=== PATIENT | female | born 1980 | race Caucasian/White ===

== ENCOUNTER 2021-07-18 09:02 | Emergency (ER) | payer OTHER ==
[2021-07-18 09:33] VITALS: BP 000/00; PULSE 81; TEMP 98.1; BMI 21.7
[2021-07-18] MEDS ORDERED: ACETAMINOPHEN 500 MG TABLET (FP) PO ONE (10:34)
[2021-07-18] MEDS ORDERED: ACETAMINOPHEN 500 MG TABLET (FP) ONE (10:37)
[2021-07-18 12:17] LABS: THROAT:GRP A STREP NOT DETECTED (NOTDETECTED)
[2021-07-19 06:06] LABS: SARS-CoV-2 NAA Not Detected (Not Detected)
== END 2021-07-18 12:30 | disposition home or self-care (01) ==
LOC: JERFT 09:02
DX: R07.0 Pain in throat (principal)
CPT/HCPCS: 87651; 99283-25; C9803-CS; U0003; U0005

== ENCOUNTER 2021-10-24 14:06 | Emergency (ER) | payer OTHER ==
[2021-10-24 14:20] VITALS: TEMP 98.6; BMI 22.1
[2021-10-24] MEDS ORDERED: ONDANSETRON 4 MG/2 ML VIAL IVPUSH ONE (16:27)
[2021-10-24] MEDS ORDERED: MAG HYDROX/AL HYDROX/SIMETH 30 ML UNIT-DOSE CUP PO ONE (16:27)
[2021-10-24] MEDS ORDERED: FAMOTIDINE 20 MG/50 ML IVPB 20 MG/50 ML MG IVPB ONE (16:27)
[2021-10-24] MEDS ORDERED: ACETAMINOPHEN 1000 MG/100 ML BAG IVPB ONE (16:31)
[2021-10-24] MEDS ORDERED: ACETAMINOPHEN 325 MG TABLET (FP) PO ONE (16:49)
[2021-10-24] MEDS ORDERED: ONDANSETRON *ODT* 4 MG TABLET SL ONE (16:49)
[2021-10-24] MEDS ORDERED: FAMOTIDINE 10 MG TABLET PO ONE (16:49)
[2021-10-24] MEDS ORDERED: ONDANSETRON *ODT* 4 MG TABLET ONE (16:58)
[2021-10-24] MEDS ORDERED: MAG HYDROX/AL HYDROX/SIMETH 30 ML UNIT-DOSE CUP ONE (16:58)
[2021-10-24] MEDS ORDERED: FAMOTIDINE 10 MG TABLET ONE (16:58)
[2021-10-24] MEDS ORDERED: SUCRALFATE 1 GM TABLET (FP) ONE ×2 (16:58→16:59)
[2021-10-24] MEDS ORDERED: ACETAMINOPHEN 325 MG TABLET (FP) ONE (17:08)
[2021-10-24] MEDS ORDERED: SUCRALFATE 1 GM TABLET (FP) PO SCH (18:00)
[2021-10-24 20:37] LABS: BASO % 0.5 % (0-2.0); EOS % 1.4 % (0-4.5); HEMATOCRIT 42.8 % (32.4-45.2); HEMOGLOBIN 14.3 GM/dL (10.7-15.3); LYMPH % 39.7 % (8-40); MCH 32.7 pg (25.7-33.7); MCHC 33.4 g/dl (32.0-36.0); MEAN PLT VOLUME 8.1 fl (7.5-11.1); MONO % 5.8 % (3.8-10.2); NEUT % 52.6 % (42.8-82.8); PLATELET COUNT 319 10^3/uL (134-434); RBC 4.37 M/mm3 (3.60-5.2); RDW 13.5 % (11.6-15.6); WHITE BLOOD COUNT 7.5 K/mm3 (4.0-10.0)
[2021-10-24 21:40] LABS: INR 1.06 (0.83-1.09); PROTHROMBIN TIME (PATIENT) 12.2 SEC (9.7-13.0)
[2021-10-24 21:43] LABS: ACTIVATED PTT 27.4 SECONDS (25.2-36.5)
[2021-10-24 22:34] LABS: CHLORIDE 103 mmol/L (98-107); SODIUM 129 mmol/L (136-145)
[2021-10-24 22:36] LABS: CALCIUM 9.1 mg/dL (8.5-10.1)
[2021-10-24 22:37] LABS: ALBUMIN 3.8 g/dl (3.4-5.0); BLOOD UREA NITROGEN 13.2 mg/dL (7-18); CO2 25 mmol/L (21-32); GLUCOSE,RANDOM 110 mg/dL (74-106); MAGNESIUM 2.9 mg/dL (1.8-2.4)
[2021-10-24 22:40] LABS: CREATININE 0.8 mg/dL (0.55-1.3)
[2021-10-24 22:41] LABS: TOT PROT 9.1 g/dl (6.4-8.2)
[2021-10-24 22:43] LABS: ALK PHOS 68 U/L (45-117)
[2021-10-24 22:56] LABS: ANION GAP 0 MMOL/L (8-16); SGOT/AST 143 U/L (15-37)
[2021-10-25 01:22] LABS: INR 1.08 (0.83-1.09); PROTHROMBIN TIME (PATIENT) 12.4 SEC (9.7-13.0)
[2021-10-25 01:24] LABS: ACTIVATED PTT 31.8 SECONDS (25.2-36.5)
[2021-10-25 01:31] LABS: ALBUMIN 4.1 g/dl (3.4-5.0); CALCIUM 9.2 mg/dL (8.5-10.1)
[2021-10-25 01:32] LABS: BLOOD UREA NITROGEN 14.2 mg/dL (7-18)
[2021-10-25 01:34] LABS: CREATININE 0.8 mg/dL (0.55-1.3)
[2021-10-25 01:36] LABS: BILIRUBIN,TOTAL 0.2 mg/dL (0.2-1); TOT PROT 7.6 g/dl (6.4-8.2)
[2021-10-25 02:21] VITALS: BP 107/72; PULSE 66
== END 2021-10-25 02:21 | disposition home or self-care (01) ==
LOC: JER 14:06
DX: M54.2 Cervicalgia (principal)
CPT/HCPCS: 36415; 71046-TC-FY; 80053; 83735; 84484; 84702; 84703; 85025; 85379; 85610; 85730; 93005; 93010; 99285-25; Q0162

== ENCOUNTER 2022-03-12 14:48 | Emergency (ER) | payer OTHER ==
[2022-03-12 16:03] VITALS: PULSE 70; BMI 24.9
[2022-03-12] MEDS ORDERED: METOCLOPRAMIDE HCL INJECTION 10 MG/2 ML VIAL IVPUSH ONE (20:20)
[2022-03-12] MEDS ORDERED: FAMOTIDINE 20 MG/50 ML IVPB 20 MG/50 ML MG IVPB ONE ×2 (20:20→20:47)
[2022-03-12] MEDS ORDERED: ACETAMINOPHEN 1000 MG/100 ML BAG IVPB ONE (20:20)
[2022-03-12] MEDS ORDERED: SODIUM CHLORIDE 0.9% 1000 ML INFUS.BAG IV ONE (20:20)
[2022-03-12] MEDS ORDERED: ACETAMINOPHEN INJECTION 100 ML IVPB ONE (20:47)
[2022-03-12] MEDS ORDERED: METOCLOPRAMIDE HCL INJECTION 10 MG/2 ML VIAL ONE (20:47)
[2022-03-12 20:57] LABS: EOS % 1.2 % (0-4.5); HEMATOCRIT 43.5 % (32.4-45.2); HEMOGLOBIN 14.6 GM/dL (10.7-15.3); LYMPH % 31.9 % (8-40); MCH 33.3 pg (25.7-33.7); MCHC 33.7 g/dl (32.0-36.0); MEAN CELL VOLUME 98.8 fl (80-96); MONO % 5.6 % (3.8-10.2); NEUT % 60.3 % (42.8-82.8); PLATELET COUNT 407 10^3/uL (134-434); RBC 4.41 M/mm3 (3.60-5.2); RDW 13.5 % (11.6-15.6); WHITE BLOOD COUNT 8.5 K/mm3 (4.0-10.0)
[2022-03-12 21:00] LABS: URINE APPEARANCE CLEAR; URINE BILIRUBIN NEGATIVE (NEGATIVE); URINE COLOR YELLOW; URINE GLUCOSE (UA) NEGATIVE (NEGATIVE); URINE KETONE NEGATIVE (NEGATIVE); URINE LEUK ESTERASE NEGATIVE (NEGATIVE); URINE NITRITE NEGATIVE (NEGATIVE); URINE PROTEIN NEGATIVE (NEGATIVE); URINE UROBILINOGEN 0.2 mg/dL (0.2-1.0)
[2022-03-12 21:23] LABS: CHLORIDE 106 mmol/L (98-107); SODIUM 137 mmol/L (136-145)
[2022-03-12 21:24] LABS: ALBUMIN 4.1 g/dl (3.4-5.0); BLOOD UREA NITROGEN 9.8 mg/dL (7-18); CALCIUM 9.3 mg/dL (8.5-10.1); CO2 28 mmol/L (21-32); GLUCOSE,RANDOM 88 mg/dL (74-106)
[2022-03-12 21:25] LABS: LIPASE 108 U/L (73-393); MAGNESIUM 2.3 mg/dL (1.8-2.4)
[2022-03-12 21:27] LABS: CREATININE 0.8 mg/dL (0.55-1.3); SGOT/AST 72 U/L (15-37)
[2022-03-12 21:29] LABS: BILIRUBIN,TOTAL 0.4 mg/dL (0.2-1); TOT PROT 8.5 g/dl (6.4-8.2)
[2022-03-12 21:31] LABS: ALK PHOS 79 U/L (45-117)
[2022-03-12 21:42] LABS: ANION GAP 4 MMOL/L (8-16); SGPT/ALT 39 U/L (13-61)
[2022-03-12 22:38] VITALS: BP 109/67; RESP 20; TEMP 97.8
[2022-03-12 23:13] LABS: BLOOD UREA NITROGEN 8.5 mg/dL (7-18)
[2022-03-12 23:16] LABS: CREATININE 0.5 mg/dL (0.55-1.3)
== END 2022-03-12 23:54 | disposition home or self-care (01) ==
LOC: JER 14:48
PROC: 3E0333Z Introduction of Anti-inflammatory into Peripheral Vein, Percutaneous Approach (ICD-10-PCS; principal; 2022-03-12)
PROC: 3E033GC Introduction of Other Therapeutic Substance into Peripheral Vein, Percutaneous Approach (ICD-10-PCS; 2022-03-12)
PROC: 3E033GC Introduction of Other Therapeutic Substance into Peripheral Vein, Percutaneous Approach (ICD-10-PCS; 2022-03-12)
DX: R11.0 Nausea (principal); R00.2 Palpitations
CPT/HCPCS: 0241U-QW; 36415; 71046-TC-FY; 80048; 80053; 81003; 83690; 83735; 84443; 84484; 84703; 85025; 93005; 93010; 99285-25

== ENCOUNTER 2022-09-11 08:27 | Emergency (ER) | payer OTHER ==
[2022-09-11 08:34] VITALS: RESP 18; TEMP 98.4; BMI 21.6
[2022-09-11] MEDS ORDERED: ACETAMINOPHEN 500 MG TABLET (FP) PO ONE (09:53)
[2022-09-11] MEDS ORDERED: SODIUM CHLORIDE 0.9% 1000 ML INFUS.BAG IV ONE (09:53)
[2022-09-11] MEDS ORDERED: ACETAMINOPHEN 500 MG TABLET (FP) ONE ×2 (10:58→11:00)
[2022-09-11 11:43] LABS: EOS % 1.4 % (0-4.5); HEMATOCRIT 41.2 % (32.4-45.2); HEMOGLOBIN 14.3 GM/dL (10.7-15.3); LYMPH % 33.7 % (8-40); MCHC 34.7 g/dl (32.0-36.0); MEAN CELL VOLUME 97.9 fl (80-96); MEAN PLT VOLUME 9.4 fl (7.5-11.1); MONO % 6.4 % (3.8-10.2); NEUT % 57.5 % (42.8-82.8); PLATELET COUNT 322 10^3/uL (134-434); RBC 4.21 M/mm3 (3.60-5.2); RDW 13.5 % (11.6-15.6); WHITE BLOOD COUNT 7.5 K/mm3 (4.0-10.0)
[2022-09-11 12:08] LABS: POTASSIUM 4.9 mmol/L (3.5-5.1)
[2022-09-11 12:09] LABS: CALCIUM 9.7 mg/dL (8.5-10.1)
[2022-09-11 12:10] LABS: ALBUMIN 4.1 g/dl (3.4-5.0); BLOOD UREA NITROGEN 8.2 mg/dL (7-18)
[2022-09-11 12:11] LABS: MAGNESIUM 2.4 mg/dL (1.8-2.4)
[2022-09-11 12:14] LABS: CREATININE 0.6 mg/dL (0.55-1.3)
[2022-09-11 12:15] LABS: BILIRUBIN,TOTAL 0.3 mg/dL (0.2-1); TOT PROT 8.1 g/dl (6.4-8.2)
[2022-09-11 13:50] VITALS: BP 106/80; PULSE 78
== END 2022-09-11 13:50 | disposition home or self-care (01) ==
LOC: JER 08:27
DX: R00.2 Palpitations (principal); R07.2 Precordial pain; R07.89 Other chest pain; R42 Dizziness and giddiness; R05.9 Cough, unspecified; R10.11 Right upper quadrant pain; G89.29 Other chronic pain; Z20.822 Contact with and (suspected) exposure to COVID-19
CPT/HCPCS: 0241U-QW; 36415; 71045-TC-FY; 80053; 83735; 84443; 84484; 84703; 85025; 93005; 93010; 99285-25

== ENCOUNTER 2023-02-01 01:35 | Emergency (ER) | payer OTHER ==
[2023-02-01 01:42] VITALS: BP 96/65; PULSE 74; RESP 16; TEMP 98.1; BMI 22.3
[2023-02-01] MEDS ORDERED: FAMOTIDINE 20 MG/50 ML IVPB 20 MG/50 ML MG IVPB ONE ×2 (02:45→03:52)
[2023-02-01] MEDS ORDERED: ACETAMINOPHEN 1000 MG/100 ML BAG IVPB ONE (02:45)
[2023-02-01] MEDS ORDERED: MAG HYDROX/AL HYDROX/SIMETH 30 ML UNIT-DOSE CUP PO ONE (02:45)
[2023-02-01 03:40] LABS: BASO % 1.3 % (0-2.0); HEMATOCRIT 42.5 % (32.4-45.2); HEMOGLOBIN 14.5 GM/dL (10.7-15.3); LYMPH % 40.6 % (8-40); MCH 33.5 pg (25.7-33.7); MCHC 34.1 g/dl (32.0-36.0); MEAN CELL VOLUME 98.2 fl (80-96); MONO % 6.1 % (3.8-10.2); RBC 4.33 M/mm3 (3.60-5.2); RDW 13.6 % (11.6-15.6); WHITE BLOOD COUNT 11.2 K/mm3 (4.0-10.0)
[2023-02-01 03:52] LABS: POTASSIUM 4.3 mmol/L (3.5-5.1)
[2023-02-01] MEDS ORDERED: ACETAMINOPHEN INJECTION 100 ML IVPB ONE (03:52)
[2023-02-01] MEDS ORDERED: MAG HYDROX/AL HYDROX/SIMETH 30 ML UNIT-DOSE CUP ONE (03:52)
[2023-02-01 03:53] LABS: CALCIUM 9.5 mg/dL (8.5-10.1)
[2023-02-01 03:55] LABS: ALBUMIN 4.1 g/dl (3.4-5.0); BLOOD UREA NITROGEN 16.5 mg/dL (7-18)
[2023-02-01 03:58] LABS: CREATININE 0.9 mg/dL (0.55-1.3)
[2023-02-01 03:59] LABS: BILIRUBIN,TOTAL 0.2 mg/dL (0.2-1); TOT PROT 8.2 g/dl (6.4-8.2)
[2023-02-01 05:31] LABS: MEAN PLT VOLUME 11.2 fl (7.5-11.1); PLATELET COUNT 297 10^3/uL (134-434)
== END 2023-02-01 05:19 | disposition home or self-care (01) ==
LOC: JER 01:35
PROC: 3E033GC Introduction of Other Therapeutic Substance into Peripheral Vein, Percutaneous Approach (ICD-10-PCS; principal; 2023-02-01)
PROC: 3E033NZ Introduction of Analgesics, Hypnotics, Sedatives into Peripheral Vein, Percutaneous Approach (ICD-10-PCS; 2023-02-01)
DX: R07.89 Other chest pain (principal); R10.12 Left upper quadrant pain; G89.29 Other chronic pain
CPT/HCPCS: 36415; 71046-TC-FY; 80053; 84484; 84703; 85025; 93005; 93010; 99285-25

== ENCOUNTER 2023-04-29 19:32 | Emergency (ER) | payer OTHER ==
[2023-04-29 19:43] VITALS: BP 103/58; PULSE 77; RESP 20; TEMP 98.1; BMI 21.4
== END 2023-04-30 01:00 | disposition home or self-care (01) ==
LOC: JER 19:32 → JERFT 19:32
DX: R07.9 Chest pain, unspecified (principal); R51.9 Headache, unspecified; R10.13 Epigastric pain; R00.0 Tachycardia, unspecified; R00.2 Palpitations; Z20.822 Contact with and (suspected) exposure to COVID-19
CPT/HCPCS: 0241U-QW; 36415; 71046-TC-FY; 84439; 84443; 84484; 93005; 93010; 99285-25

== ENCOUNTER 2023-06-26 13:00 | Emergency (ER) | payer OTHER ==
[2023-06-26 13:34] VITALS: BP 105/64; PULSE 73; RESP 17; TEMP 97.8; BMI 23.3
[2023-06-26] MEDS ORDERED: FAMOTIDINE 20 MG/50 ML IVPB 20 MG/50 ML MG IVPB ONE (14:43)
[2023-06-26] MEDS ORDERED: ACETAMINOPHEN INJECTION 100 ML IVPB ONE (14:43)
[2023-06-26] MEDS ORDERED: ONDANSETRON 4 MG/2 ML VIAL ONE (14:43)
[2023-06-26] MEDS: ACETAMINOPHEN 1000 MG/100 ML BAG IVPB ONE (15:20)
[2023-06-26] MEDS: ONDANSETRON 4 MG/2 ML VIAL IVPUSH ONE (15:20)
[2023-06-26] MEDS: FAMOTIDINE 20 MG/50 ML IVPB 20 MG/50 ML MG IVPB ONE (15:21)
[2023-06-26 15:30] LABS: BASO % 0.9 % (0-2.0); EOS % 4.5 % (0-4.5); HEMATOCRIT 39.1 % (32.4-45.2); HEMOGLOBIN 13.5 GM/dL (10.7-15.3); LYMPH % 23.7 % (8-40); MCHC 34.5 g/dl (32.0-36.0); MEAN CELL VOLUME 98.6 fl (80-96); MEAN PLT VOLUME 7.7 fl (7.5-11.1); MONO % 7.8 % (3.8-10.2); NEUT % 63.1 % (42.8-82.8); PLATELET COUNT 331 10^3/uL (134-434); RBC 3.97 M/mm3 (3.60-5.2); RDW 13.2 % (11.6-15.6); WHITE BLOOD COUNT 10.2 K/mm3 (4.0-10.0)
[2023-06-26 15:48] LABS: EPI CELLS 9 /uL (0-25.1); HYALINE CASTS 1 /uL (0-3.1); PH,URINE 5.5 (5.0-8.0); URINE APPEARANCE CLEAR; URINE BACTERIA 36 /uL (0-1359); URINE BILIRUBIN NEGATIVE (NEGATIVE); URINE COLOR YELLOW; URINE GLUCOSE (UA) NEGATIVE (NEGATIVE); URINE KETONE NEGATIVE (NEGATIVE); URINE LEUK ESTERASE TRACE (NEGATIVE); URINE NITRITE NEGATIVE (NEGATIVE); URINE PROTEIN NEGATIVE (NEGATIVE); URINE RBC 22 /uL (0-23.9); URINE UROBILINOGEN 0.2 mg/dL (0.2-1.0); URINE WBC 16 /uL (0-25.8)
[2023-06-26 15:49] LABS: CHLORIDE 106 mmol/L (98-107); SODIUM 136 mmol/L (136-145)
[2023-06-26 15:55] LABS: ALBUMIN 3.4 g/dl (3.4-5.0); GLUCOSE,RANDOM 96 mg/dL (74-106)
[2023-06-26 15:56] LABS: BLOOD UREA NITROGEN 9.6 mg/dL (7-18); CO2 30 mmol/L (21-32)
[2023-06-26 15:58] LABS: CREATININE 0.7 mg/dL (0.55-1.3); SGOT/AST 55 U/L (15-37)
[2023-06-26 16:00] LABS: BILIRUBIN,TOTAL 0.3 mg/dL (0.2-1); SGPT/ALT 28 U/L (13-61); TOT PROT 7.9 g/dl (6.4-8.2)
[2023-06-26 16:01] LABS: ALK PHOS 72 U/L (45-117); ANION GAP 1 mmol/L (4-13); POTASSIUM 7.1 mmol/L (3.5-5.1)
[2023-06-26] MEDS ORDERED: SIMETHICONE 80 MG TAB.CHEW (FP) ONE (18:38)
[2023-06-26] MEDS: SIMETHICONE 40 MG/0.6 ML BOTTLE PO ONE (18:42)
[2023-06-26] MEDS: SIMETHICONE 80 MG TAB.CHEW (FP) PO ONE (18:43)
[2023-06-26 19:05] LABS: POTASSIUM 4.2 mmol/L (3.5-5.1)
[2023-06-26 19:09] LABS: BLOOD UREA NITROGEN 8.7 mg/dL (7-18); CALCIUM 8.9 mg/dL (8.5-10.1)
[2023-06-26 19:13] LABS: CREATININE 0.6 mg/dL (0.55-1.3)
[2023-06-26] MEDS ORDERED: METOCLOPRAMIDE HCL INJECTION 10 MG/2 ML VIAL IVPUSH ONE (21:49)
[2023-06-26] MEDS ORDERED: MAG HYDROX/AL HYDROX/SIMETH -MYLANTA- ORAL SUSPENSION PO ONE (21:49)
[2023-06-26] MEDS ORDERED: SUCRALFATE 1 GM TABLET (FP) ONE (23:53)
[2023-06-26] MEDS ORDERED: PANTOPRAZOLE SODIUM 40 MG VIAL ONE (23:54)
[2023-06-26] MEDS: SUCRALFATE 1 GM TABLET (FP) PO ONE (23:56)
[2023-06-27] MEDS: PANTOPRAZOLE SODIUM 40 MG VIAL IVPUSH ONE (00:01)
== END 2023-06-27 03:05 | disposition home or self-care (01) ==
LOC: JER 13:00
PROC: 3E033GC Introduction of Other Therapeutic Substance into Peripheral Vein, Percutaneous Approach (ICD-10-PCS; principal; 2023-06-26)
PROC: 3E033GC Introduction of Other Therapeutic Substance into Peripheral Vein, Percutaneous Approach (ICD-10-PCS; 2023-06-26)
PROC: 3E033GC Introduction of Other Therapeutic Substance into Peripheral Vein, Percutaneous Approach (ICD-10-PCS; 2023-06-26)
PROC: 3E033GC Introduction of Other Therapeutic Substance into Peripheral Vein, Percutaneous Approach (ICD-10-PCS; 2023-06-26)
DX: R10.13 Epigastric pain (principal); R11.0 Nausea; Z20.822 Contact with and (suspected) exposure to COVID-19
CPT/HCPCS: 0241U-QW; 36415; 71046-TC-FY; 74176-TC; 76705-TC; 80048; 80053; 81003; 83605; 83690; 84484; 85025; 87086; 93005; 93010; 99285-25; J0131

== ENCOUNTER 2023-08-21 03:19 | Emergency (ER) | payer OTHER ==
[2023-08-21 03:25] VITALS: TEMP 97.6; BMI 21.6
[2023-08-21 04:19] LABS: BASO % 0.5 % (0-2.0); EOS % 1.8 % (0-4.5); HEMOGLOBIN 13.1 GM/dL (10.7-15.3); LYMPH % 32.4 % (8-40); MCH 33.3 pg (25.7-33.7); MCHC 33.5 g/dl (32.0-36.0); MEAN CELL VOLUME 99.5 fl (80-96); MEAN PLT VOLUME 8.1 fl (7.5-11.1); MONO % 6.5 % (3.8-10.2); NEUT % 58.8 % (42.8-82.8); PLATELET COUNT 322 10^3/uL (134-434); RBC 3.92 M/mm3 (3.60-5.2); RDW 13.6 % (11.6-15.6); WHITE BLOOD COUNT 9.4 K/mm3 (4.0-10.0)
[2023-08-21 04:29] LABS: INR 1.06 (0.83-1.09)
[2023-08-21 05:08] LABS: CHLORIDE 105 mmol/L (98-107); POTASSIUM 3.8 mmol/L (3.5-5.1); SODIUM 136 mmol/L (136-145)
[2023-08-21 05:10] LABS: ALBUMIN 3.5 g/dl (3.4-5.0); ANION GAP 2 mmol/L (4-13); CALCIUM 8.8 mg/dL (8.5-10.1); CO2 30 mmol/L (21-32); GLUCOSE,RANDOM 92 mg/dL (74-106); MAGNESIUM 2.1 mg/dL (1.8-2.4)
[2023-08-21 05:13] LABS: CREATININE 0.7 mg/dL (0.55-1.3); SGOT/AST 24 U/L (15-37)
[2023-08-21 05:14] LABS: SGPT/ALT 24 U/L (13-61)
[2023-08-21 05:15] LABS: BILIRUBIN,TOTAL 0.2 mg/dL (0.2-1); TOT PROT 7.1 g/dl (6.4-8.2)
[2023-08-21 05:16] LABS: ALK PHOS 87 U/L (45-117)
[2023-08-21 05:35] VITALS: BP 113/75; PULSE 63; RESP 19
== END 2023-08-21 05:45 | disposition home or self-care (01) ==
LOC: JER 03:19
DX: R00.2 Palpitations (principal)
CPT/HCPCS: 36415; 71045-TC-FY; 80053; 82550; 83735; 84443; 84484; 84703; 85025; 85610; 85730; 93005; 93010; 99285-25

== ENCOUNTER 2023-09-11 12:22 | Emergency (ER) | payer OTHER ==
[2023-09-11 12:54] VITALS: BP 104/62; PULSE 78; RESP 16; TEMP 97.7; BMI 20.5
== END 2023-09-11 14:26 | disposition left against medical advice (07) ==
LOC: JERFT 12:22
DX: Z53.21 Procedure and treatment not carried out due to patient leaving prior to being seen by health care provider (principal)
CPT/HCPCS: 99281-25